=== PATIENT | male | born 1990 | race Two or more races ===

== ENCOUNTER 2021-06-24 08:16 | Emergency (ER) | payer OTHER ==
[~2021-06-24] VITALS: Ht 170.2 cm; Wt 63.5 kg
[2021-06-24 08:41] VITALS: BP 132/85
== END 2021-06-24 09:29 | disposition home or self-care (01) ==
LOC: ER 08:16
DX: S60.511A Abrasion of right hand, initial encounter (principal); F17.210 Nicotine dependence, cigarettes, uncomplicated; V43.52XA Car driver injured in collision with other type car in traffic accident, initial encounter; Y93.89 Activity, other specified; Y92.410 Unspecified street and highway as the place of occurrence of the external cause; Y99.8 Other external cause status